=== PATIENT | male | born 1985 | race Caucasian/White ===

== ENCOUNTER 2024-04-14 03:59 | Day surgery (SDC) | payer BC ==
[2024-04-13 09:21] VITALS: BMI 45.3
[2024-04-14] MEDS ORDERED: DEXTROSE 5%-0.45% SALINE 1,000 ML IV SCH (08:15)
[2024-04-14] MEDS ORDERED: PROPOFOL 20 ML ONE (09:04)
[2024-04-14] MEDS ORDERED: ceFAZolin SODIUM 1 GM VIAL ONE ×2 (09:05→09:16)
[2024-04-14] MEDS ORDERED: MIDAZOLAM HCL 2 MG/2 ML SINGLE DOSE VIAL ONE (09:05)
[2024-04-14] MEDS ORDERED: FENTANYL CITRATE/PF 50 MCG/ML VIAL ONE (09:05)
[2024-04-14] MEDS ORDERED: SODIUM CHLORIDE 0.9% P/F 10 ML VIAL IJ ONE (09:05)
[2024-04-14] MEDS ORDERED: LIDOCAINE HCL/PF 2% SDV 5ML VIAL ONE (09:05)
[2024-04-14] MEDS ORDERED: GLYCOPYRROLATE 0.2 MG/1 ML VIAL ONE (09:08)
[2024-04-14] MEDS ORDERED: ONDANSETRON 4 MG/2 ML VIAL IVPUSH PRN (09:15)
[2024-04-14] MEDS ORDERED: PROMETHAZINE HCL 25 MG/1 ML VIAL IVPB PRN (09:15)
[2024-04-14] MEDS ORDERED: oxyCODONE HCL 5 MG TABLET PO PRN (09:15)
[2024-04-14] MEDS: ceFAZolin SODIUM 1 GM VIAL IVPB ONE (09:23)
[2024-04-14] MEDS ORDERED: KETOROLAC TROMETHAMINE 30 MG/1 ML VIAL ONE (09:41)
[2024-04-14] MEDS: LACTATED RINGERS SOLUTION 1,000 ML IV SCH (10:10)
[2024-04-14] MEDS: hydrALAZINE HCL 20 MG/ML VIAL IVPUSH ONE (11:03)
[2024-04-14 11:30] VITALS: RESP 18
[2024-04-14 13:02] VITALS: BP 127/77; PULSE 63; TEMP 98.5
== END 2024-04-14 13:05 | disposition home or self-care (01) ==
LOC: JASU-SURG 03:59
PROVIDERS: ATTEND Urology
PROC: 0TC78ZZ Extirpation of Matter from Left Ureter, Via Natural or Artificial Opening Endoscopic (ICD-10-PCS; 2024-04-14)
PROC: 0TC18ZZ Extirpation of Matter from Left Kidney, Via Natural or Artificial Opening Endoscopic (ICD-10-PCS; principal; 2024-04-14 08:30)
DX: N20.2 Calculus of kidney with calculus of ureter (principal)
CPT/HCPCS: 76000-TC-FY; 94760; C1758; C1769; C2617